=== PATIENT | female | born 1985 | race African-American/Black ===

== ENCOUNTER 2019-04-05 21:48 | Emergency (ER) | payer OTHER ==
[~2019-04-05] VITALS: Ht 165.1 cm; Wt 129.7 kg
[2019-04-05] MEDS ORDERED: CLARITHROMYCIN 250 MG TABLET PO ONE (23:00)
--- NOTE | 2019-04-05 23:22 | NUR ---
Biaxin medication unavailable at this time per nursing cleaning supervisor, GINETTE CALVERT made aware.
--- NOTE | 2019-04-05 23:26 | NUR ---
Patient discharged to home in stable conditon. Written and verbal after care instructions given. Patient verbalizes understanding of instructions. Patient ambulated out of ER with stable gait.
[2019-04-05 23:27] VITALS: BP 144/94
== END 2019-04-05 23:28 | disposition home or self-care (01) ==
LOC: ER 21:48
DX: R04.2 Hemoptysis (principal); J84.9 Interstitial pulmonary disease, unspecified
CPT/HCPCS: 71046; A4663